=== PATIENT | female | born 1990 | race Caucasian/White ===

== ENCOUNTER 2016-07-26 16:18 | Emergency (ER) | payer BC ==
--- NOTE | ~2016-07-26 | ER ---
PATIENT'S NAME: MONICA LOWRY [facility] AGE: 25 Y [address] ROOM: [place] [address] LOCATION: [facility] ADMIT DATE: 07/26/2016 ER/Outpatient Report DISCHARGE DATE: 07/26/2016 FAMILY PHYSICIAN: PHYSICIAN, NO ATTENDING PHYSICIAN: Katie Caro A HISTORY OF PRESENT ILLNESS: This patient is a 25-year-old female, who came in with vaginal bleeding. She had a spontaneous on June 22 of this year. She has some continued vaginal bleeding, worse today. She presented to the emergency room for evaluation. She did talk with Dr. Razo, [employer] on-call. She does see Dr. Hinton. Her blood type is A positive. I took over care of this patient at shift change per Dr. Caro. Dr. Caro asked me to follow up with the patient's ultrasound results, final diagnoses, and treatment plan. The patient's quantitative HCG was 20. Her hemoglobin is 12.1 with hematocrit 36.7. She has soaked 2 pads today. She is 1, para 0-0-1-0. Ultrasound showed what looked like retained placenta and a hemorrhagic cyst. Discussed the patient with Dr. Razo, and Dr. Razo want to go ahead and place 600 mg of Cytotec tablets in her vaginal vault. I did discuss this with the patient. The patient did have this procedure done about [address] Hinton. I did put a lighted, weighted speculum in the vaginal canal. Had a little bit of darkish blood in the vaginal vault. There was no active bleeding from the cervical os. Did place six 100 mcg tablet of Cytotec deep in the vaginal vault, followed by a tampon. The patient tolerated the procedure well. IMPRESSION: Retained placental tissue, uterine cavity, with vaginal bleeding. The patient is status post spontaneous of her first on June 22, 2016. PLAN: The patient dismissed home. Observation. Activity as tolerated. Diet and fluids as tolerated. Remove tampon after 24 hours or sooner if it soaks through. Followup with personal physician first of next week. MD MAITE HOOKS/modl /[id number] d: 07/27/16 0012 t: 07/27/16 1812, OUTPATIENT REPORT
--- NOTE | ~2016-07-26 | ER ---
PATIENT'S NAME: MONICA LOWRY [facility] AGE: 25 Y [address] ROOM: [place] [address] LOCATION: [facility] ADMIT DATE: 07/26/2016 ER/Outpatient Report DISCHARGE DATE: 07/26/2016 FAMILY PHYSICIAN: PHYSICIAN, NO ATTENDING PHYSICIAN: Katie Renee Time of Arrival: 1618 hours. Time of Evaluation: 1643 hours. IDENTIFICATION: A 25-year-old female. CHIEF COMPLAINT: Vaginal bleeding. HISTORY OF PRESENT ILLNESS: The patient is a 25-year-old, female, who had a spontaneous AB on June 22. She had been followed by Dr. Hinton. She has had some persistent bleeding since that time. A week ago, Thursday, the patient noted blood in her stools, suspected secondary to hemorrhoids, and was evaluated by her primary care physician at that time at [facility]; was seen by Jeannie who was on-call. Last period, she is not sure about. She had been on Depo- Provera and then was off that and got . Her blood type is A positive, and then she has been soaking 2 or 3 pads today, which is increased bleeding for her. She has no pain, no cramping, no lightheadedness or dizziness, and no other problems. She has a stable monogamous partner. No history of STDs or PID. PAST MEDICAL HISTORY: ALLERGIES: NO KNOWN DRUG ALLERGIES. MEDICATIONS: No current medications. MEDICAL PROBLEMS: Denies. No prior surgeries or hospitalizations. SOCIAL HISTORY: The patient lives with her in [place]. 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 She is originally from [place]. Tobacco use, denies. Alcohol use, rare. Drug use, denies. REVIEW OF SYSTEMS: PATIENT'S NAME: MONICA LOWRY [facility] AGE: 25 Y [address] ROOM: [place] [address] LOCATION: [facility] ADMIT DATE: 07/26/2016 ER/Outpatient Report DISCHARGE DATE: 07/26/2016 FAMILY PHYSICIAN: PHYSICIAN, NO ATTENDING PHYSICIAN: Katie Renee All systems reviewed and negative other than what is noted in the HPI. FAMILY HISTORY: No pertinent family history. PHYSICAL EXAMINATION: VITAL SIGNS: Height 5 feet 11 inches, weight 67.1 kg. Blood pressure 141/82, pulse 79, respirations 16, temperature 99.5, and saturations 99%. GENERAL: A 25-year-old female, in no acute distress. HEAD: Normocephalic, atraumatic. EARS: TMs translucent, both ears. NOSE: Mucosa pink, no lesions. MOUTH: No lesions. Oropharynx benign. NECK: Supple. No lymphadenopathy. LUNGS: Clear to auscultation. HEART: Regular rate and rhythm. ABDOMEN: Soft, nondistended. No hepatosplenomegaly. No palpable masses. Nontender. SKIN: [place], warm, and dry. No lesions or rashes noted. NEURO: No focal deficit. PELVIC: No pelvic exam performed at this time. EMERGENCY DEPARTMENT COURSE: HCG is 20, it was 39 a week ago on Thursday. Hemoglobin 12.1, hematocrit 36.7, platelets 201, white count 7.3 with a normal differential. Clot to bank. Ultrasound pending at the shift change and Dr. Acuña will assume care and follow up on the ultrasound. My concern at this time is abnormal uterine bleeding secondary to retained placenta. The patient's blood type is A positive. She does not require any RhoGAM, and she has contacted Dr. Razo already prior to presenting to the emergency room. KATIE RENEE MD CAR/robel /[id number] d: 07/27/16910 t: 07/29/16921, OUTPATIENT REPORT
[2016-07-26 17:23] LABS: BASOPHIL % 0.3 %; EOSINOPHIL # 0.1 K/uL (0.0-0.5); EOSINOPHIL % 1.1 %; HEMATOCRIT 36.7 % (33.0-46.0); HEMOGLOBIN 12.1 g/dL (11.0-15.0); IMMATURE GRANULOCYTE % 0.3 %; LYMPHOCYTE # 1.6 K/uL (0.8-4.0); LYMPHOCYTE % 22.1 %; MCV 90.8 fl (83.0-98.0); MONOCYTE # 0.4 K/uL (0.0-1.0); MPV 9.9 fl (9.4-12.4); NEUTROPHIL # (ANC) 5.2 K/uL (1.8-7.8); NEUTROPHIL % 70.2 %; NRBC % 0 /100WBC (0-0.00); PLATELET COUNT 201 K/uL (150-450); RBC 4.04 M/uL (3.50-5.00); RDW-CV 12.8 % (11.9-14.6); WBC 7.3 K/uL (4.0-11.0)
== END 2016-07-26 20:18 | disposition disaster alternative care site (69) ==
LOC: GMED 16:18
PROVIDERS: Family Medicine
DX: O03.1 Delayed or excessive hemorrhage following incomplete spontaneous abortion (principal)